=== PATIENT | female | born 1950 | race Two or more races ===

== ENCOUNTER 2021-06-02 10:10 | Outpatient (CLI) | payer MEDICARE ==
[2021-06-02 11:23] LABS: BASOPHILS # (AUTO) 0.1 K/uL (0.0-0.2); BASOPHILS % (AUTO) 0.7 % (0.0-2.0); EOSINOPHILS % (AUTO) 1.7 % (0.0-6.0); HEMATOCRIT 41 % (33-45); HEMOGLOBIN 12.8 g/dL (11.5-14.8); LYMPHOCYTES # (AUTO) 2.3 K/uL (0.8-4.8); LYMPHOCYTES % (AUTO) 23.1 % (20.0-44.0); MEAN CORPUSCULAR HGB CONC 31 g/dl (31.0-36.0); MEAN CORPUSCULAR VOLUME 77 fL (82-100); MONOCYTES # (AUTO) 0.5 K/uL (0.1-1.30); MONOCYTES % (AUTO) 5.3 % (2.0-12.0); NEUTROPHILS # (AUTO) 6.9 K/uL (1.8-8.9); NEUTROPHILS % (AUTO) 69.2 % (43.0-81.0); PLATELET COUNT (AUTO) 325 K/uL (150-450); RED BLOOD CELL COUNT(AUTO) 5.38 MIL/uL (4.0-5.2)
[2021-06-02 11:49] LABS: ALBUMIN 3.7 g/dL (3.4-5.0); BILIRUBIN,DIRECT 0.1 mg/dL (0.0-0.2); BILIRUBIN,TOTAL 0.3 mg/dL (0.2-1.0)
== END 2021-06-02 23:59 | disposition home or self-care (01) ==
LOC: MSC 10:10
PROVIDERS: ATTEND Internal Medicine
DX: E11.9 Type 2 diabetes mellitus without complications (principal); I10 Essential (primary) hypertension; Z86.79 Personal history of other diseases of the circulatory system; E66.8 Other obesity; Z71.3 Dietary counseling and surveillance; F29 Unspecified psychosis not due to a substance or known physiological condition; F32.9 Major depressive disorder, single episode, unspecified; G89.29 Other chronic pain; M24.571 Contracture, right ankle
CPT/HCPCS: 36415; 80061; 80076; 82728; 83036; 83540; 84439; 85025; 86431; G0463

== ENCOUNTER 2021-08-08 10:29 | Outpatient (CLI) | payer MEDICARE | END 2021-08-08 23:59 | disposition home or self-care (01) | LOC: MSC 10:29 | PROVIDERS: ATTEND Internal Medicine | DX: Z51.89 Encounter for other specified aftercare (principal); E11.9 Type 2 diabetes mellitus without complications; Z79.4 Long term (current) use of insulin; Z71.89 Other specified counseling; I10 Essential (primary) hypertension; E66.8 Other obesity; Z71.3 Dietary counseling and surveillance; F29 Unspecified psychosis not due to a substance or known physiological condition; F32.9 Major depressive disorder, single episode, unspecified; M24.571 Contracture, right ankle; G89.29 Other chronic pain; Z79.891 Long term (current) use of opiate analgesic; Z76.0 Encounter for issue of repeat prescription ==

== ENCOUNTER 2021-10-04 10:29 | Outpatient (CLI) | payer MEDICARE | END 2021-10-04 23:59 | disposition home or self-care (01) | LOC: MSC 10:29 | PROVIDERS: ATTEND Internal Medicine | DX: E11.9 Type 2 diabetes mellitus without complications (principal); Z79.4 Long term (current) use of insulin; I10 Essential (primary) hypertension; E66.8 Other obesity; Z71.3 Dietary counseling and surveillance; F32.3 Major depressive disorder, single episode, severe with psychotic features; M24.571 Contracture, right ankle; G89.29 Other chronic pain; Z76.0 Encounter for issue of repeat prescription ==

== ENCOUNTER 2021-11-14 11:35 | Outpatient (CLI) | payer MEDICARE ==
[2021-11-14] MEDS ORDERED: INSU100V7 SQ (12:51)
[2021-11-14] MEDS ORDERED: GABA-532 PO (12:51)
[2021-11-14] MEDS ORDERED: OXYC-133 PO (12:51)
[2021-11-14] MEDS ORDERED: METO25TA3 PO (12:51)
[2021-11-14] MEDS ORDERED: INSU100V3 SQ (12:51)
== END 2021-11-14 23:59 | disposition home or self-care (01) ==
LOC: MSC 11:35
PROVIDERS: ATTEND Internal Medicine
DX: R29.898 Other symptoms and signs involving the musculoskeletal system (principal); R27.8 Other lack of coordination; R53.1 Weakness; E11.9 Type 2 diabetes mellitus without complications; Z79.4 Long term (current) use of insulin; I10 Essential (primary) hypertension; E66.8 Other obesity; F29 Unspecified psychosis not due to a substance or known physiological condition; M24.571 Contracture, right ankle; F32.9 Major depressive disorder, single episode, unspecified; G89.29 Other chronic pain; Z79.891 Long term (current) use of opiate analgesic

== ENCOUNTER 2021-11-14 12:07 | Inpatient (IN) | payer MEDICARE, OTHER ==
[~2021-11-14] VITALS: Ht 167.6 cm; Wt 88.9 kg
--- NOTE | 2021-11-14 12:16 | NUR ---
To ER bed 2, c/o L sided weakness x 2 days, sent by dr maldonado for further eval. Left hand is weaker than right, no other complains, aaox3, breathing even and labored, connected to monitor
--- NOTE | 2021-11-14 12:25 | NUR ---
SALINE LOCK ESTABLISHED, BLOOD DRAWN AND SENT TO LAB
[2021-11-14 12:45] LABS: BASOPHILS # (AUTO) 0.1 K/uL (0.0-0.2); BASOPHILS % (AUTO) 1.1 % (0.0-2.0); EOSINOPHILS % (AUTO) 1.1 % (0.0-6.0); HEMATOCRIT 41 % (33-45); HEMOGLOBIN 13.1 g/dL (11.5-14.8); LYMPHOCYTES # (AUTO) 2.5 K/uL (0.8-4.8); LYMPHOCYTES % (AUTO) 26.3 % (20.0-44.0); MEAN CORPUSCULAR HGB CONC 32 g/dl (31.0-36.0); MEAN CORPUSCULAR VOLUME 77 fL (82-100); MONOCYTES # (AUTO) 0.5 K/uL (0.1-1.30); MONOCYTES % (AUTO) 4.7 % (2.0-12.0); NEUTROPHILS # (AUTO) 6.4 K/uL (1.8-8.9); NEUTROPHILS % (AUTO) 66.8 % (43.0-81.0); PLATELET COUNT (AUTO) 341 K/uL (150-450); RED BLOOD CELL COUNT(AUTO) 5.38 MIL/uL (4.0-5.2); WHITE BLOOD COUNT (AUTO) 9.6 K/uL (4.3-11.0)
[2021-11-14] MEDS ORDERED: GABA-532 PO (12:51)
[2021-11-14] MEDS ORDERED: INSU100V3 SQ (12:51)
[2021-11-14] MEDS ORDERED: INSU100V7 SQ (12:51)
[2021-11-14] MEDS ORDERED: METO25TA3 PO (12:51)
[2021-11-14] MEDS ORDERED: OXYC-133 PO (12:51)
[2021-11-14 13:09] LABS: CALCIUM, SERUM 8.8 mg/dL (8.5-10.1); CARBON DIOXIDE 31 mmol/L (21-32); CHLORIDE 101 mmol/L (98-107); CREATININE 0.8 mg/dL (0.6-1.3); GLUCOSE 227 mg/dL (74-106); POTASSIUM 3.6 mmol/L (3.5-5.1); SODIUM SERUM 136 mmol/L (136-145); UREA NITROGEN, BLOOD 10 mg/dL (7-18)
--- NOTE | 2021-11-14 13:11 | NUR ---
COVID SWAB DONE AND SENT TO LAB
--- NOTE | 2021-11-14 16:17 | NUR ---
SEEN BY NEUROLOGIST AT BEDSIDE
[2021-11-14] MEDS ORDERED: GABAPENTIN 300 MG CAPSULE ONE (16:33)
[2021-11-14] MEDS ORDERED: ENOXAPARIN SODIUM 40 MG/0.4 ML DISP.SYRIN SQ ONE (16:33)
[2021-11-14] MEDS: ENOXAPARIN SODIUM 40 MG/0.4 ML DISP.SYRIN SQ SCH (16:45)
[2021-11-14] MEDS: GABAPENTIN 100 MG CAPSULE PO SCH (16:45)
[2021-11-14] MEDS: BLOOD SUGAR DIAGNOSTIC 1 EACH STRIP IN SCH (17:20)
--- NOTE | 2021-11-14 17:21 | NUR ---
2D ECHO DONE AT BEDSIDE
[2021-11-14] MEDS ORDERED: BLOOD SUGAR DIAGNOSTIC 1 EACH STRIP IN SCH (18:00)
--- NOTE | 2021-11-14 18:04 | NUR ---
REPORT GIVEN TO NURSE RECINOS FOR YMUIKO
--- NOTE | 2021-11-14 18:17 | NUR ---
CALLED DR GUNN AND INFORMED HIM ABOUT BLOOD SUGAR 218mg/dl.
--- NOTE | 2021-11-14 18:30 | NUR ---
TRANSFER PATIENT TO ROOM. ENDORSED PATIENT BS LEVEL TO RN JORJE TO FF UP SLIDING SCALE. PATIENT IS ALERT, ORIENTED X4.
[2021-11-14 18:34] LABS: C-REACTIVE PROTEIN 1.1 mg/dL (0.0-0.9); CHOLESTEROL 326 mg/dL (<200); HDL CHOLESTEROL 45 mg/dL (40-60); LDL 211 mg/dL (0-99); THYROID STIMULATING HORMONE 1.353 uIU/mL (0.358-3.74); TRIGLYCERIDES 374 mg/dL (30-150)
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
[2021-11-14 20:00] VITALS: BP 163/85
--- NOTE | 2021-11-14 20:30 | NUR ---
INFORMATION SERVICES ASSISTANT OPENING NOTES: RECEIVED PATIENT AWAKE IN BED, BED IN LOW POSITION, CALL LIGHTS WITHIN REACH, NO COMPLAIN OF PAIN AND DISCOMFORT AT THIS TIME, PATIENT IS A/O X4 ABLE TO MAKE NEEDS KNOWN, SKIN ASSESSMENT NOT YET DONE REFUSED WILL FOLLOW UP, INVENTORIES DONE AND SIGN PATIENT WITH IV LINE AT RAC#18 SL, ON TELE MONITORING SR-70 NO SYMPTOMS WAS OBSERVED, PATIENT KEPT CLEAN AND DRY ALL NEEDS MET WILL CONTINUE TO MONITOR.
[2021-11-14] MEDS: INSULIN GLARGINE, 100 UNIT/ML CARTRIDGE SQ SCH (23:40)
[2021-11-14] MEDS: SIMVASTATIN 20 MG TABLET PO SCH (23:43)
[2021-11-15] VITALS (7 sets, daily range): BP systolic 133–158; BP diastolic 76–94
[2021-11-15] MEDS: BLOOD SUGAR DIAGNOSTIC 1 EACH STRIP IN SCH ×6 (00:06→21:47)
[2021-11-15] MEDS ORDERED: DEXTROSE 50%-WATER 50 ML DISP.SYRIN IV PRN ×2 (02:00)
[2021-11-15] MEDS ORDERED: INSULIN REGULAR, HUMAN 100 UNIT/ML 3 ML VIAL SQ PRN (02:00)
--- NOTE | 2021-11-15 02:05 | NUR ---
RN NOTES: NO INSULIN GIVEN DUPLICATE ORDER
--- NOTE | 2021-11-15 06:32 | NUR ---
TEXT DR. BENZ FOR MRI APPROVAL.
--- NOTE | 2021-11-15 07:24 | NUR ---
CITY ROUTEMAN CLOSING NOTES: PATIENT WAS AWAKE IN BED, BED IN LOW POSITION, CALL LIGHTS WITHIN REACH, NO COMPLAIN OF PAIN AND DISCOMFORT AT THIS TIME, PATIENT IS A/OX4 ABLE TO EXPRESS NEEDS, ON BED REST, ON TELE MONITOR SR-68, ON ROOM AIR NO SOB WAS OBSERVED, WITH IV LINE AT RAC#18 SL, PATIENT KEPT CLEAN AND DRY ALL NEEDS MET ENDORSE TO INCOMING SHIFT.
[2021-11-15] MEDS ORDERED: BLOOD SUGAR DIAGNOSTIC 1 EACH STRIP IN SCH (07:30)
--- NOTE | 2021-11-15 07:30 | NUR ---
MANAGER GLOBAL COMMUNICATIONS OPENING NOTES PATIENT IS AWAKE IN BED, A/O X4. EQUAL CHEST EXPANSION ON RA WITH NO S/SX OF RESPIRATORY DISTRESS NOTED. NO COMPLAINT OF PAIN VERBALIZED AT THIS TIME. ON TELE MONITOR READING SR-70's AT THIS TIME. R AC#18 INTACT AND PATENT. L FOOT IMMOBILIZER IN PLACE. SAFETY PRECAUTIONS IN PLACE: BED IN LOWEST POSITION, WHEELS LOCKED, CALL LIGHT WITHIN REACH. WILL CONTINUE PLAN OF CARE
[2021-11-15] MEDS: ASPIRIN EC 325 MG TABLET.DR PO SCH (09:29)
[2021-11-15] MEDS: GABAPENTIN 100 MG CAPSULE PO SCH ×3 (09:29→16:41)
[2021-11-15] MEDS: METOPROLOL SUCCINATE 25 MG TAB.SR.24H PO SCH (09:30)
[2021-11-15] MEDS: PANTOPRAZOLE 40 MG TABLET.DR PO SCH (09:30)
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
[2021-11-15] MEDS: INSULIN REGULAR, HUMAN 100 UNIT/ML 3 ML VIAL SQ PRN ×3 (12:26→22:14)
[2021-11-15] MEDS ORDERED: GADOTERATE MEGLUMINE 5 MMOL/10 ML VIAL IV ONE (14:54)
[2021-11-15 15:05] LABS: BASOPHILS # (AUTO) 0.1 K/uL (0.0-0.2); BASOPHILS % (AUTO) 1.3 % (0.0-2.0); EOSINOPHILS % (AUTO) 1.4 % (0.0-6.0); HEMATOCRIT 41 % (33-45); LYMPHOCYTES # (AUTO) 3.1 K/uL (0.8-4.8); LYMPHOCYTES % (AUTO) 32.8 % (20.0-44.0); MEAN CORPUSCULAR HGB CONC 32 g/dl (31.0-36.0); MEAN CORPUSCULAR VOLUME 77 fL (82-100); MONOCYTES # (AUTO) 0.7 K/uL (0.1-1.30); MONOCYTES % (AUTO) 7.1 % (2.0-12.0); NEUTROPHILS # (AUTO) 5.5 K/uL (1.8-8.9); NEUTROPHILS % (AUTO) 57.4 % (43.0-81.0); PLATELET COUNT (AUTO) 291 K/uL (150-450); RED BLOOD CELL COUNT(AUTO) 5.33 MIL/uL (4.0-5.2); WHITE BLOOD COUNT (AUTO) 9.5 K/uL (4.3-11.0)
[2021-11-15 15:27] LABS: CALCIUM, SERUM 8.8 mg/dL (8.5-10.1); CREATININE 0.9 mg/dL (0.6-1.3); POTASSIUM 3.2 mmol/L (3.5-5.1)
[2021-11-15] MEDS: ENOXAPARIN SODIUM 40 MG/0.4 ML DISP.SYRIN SQ SCH (16:42)
--- NOTE | 2021-11-15 18:45 | NUR ---
PHYSIOTHERAPY PRACTICE MANAGER CLOSING NOTES PATIENT IS AWAKE IN BED, A/O X4. NO S/SX OF RESPIRATORY DISTRESS NOTED. NO COMPLAINT OF PAIN VERBALIZED AT THIS TIME. ON TELE MONITOR READING SR-60's AT THIS TIME. R FA#18 INTACT AND PATENT. L FOOT IMMOBILIZER IN PLACE. MRI OF THE HEAD DONE TODAY AND RESULTS ARE IN. ALL ORDERS CARRIED OUT AND NEEDS MET. SAFETY PRECAUTIONS IN PLACE: BED IN LOWEST POSITION, WHEELS LOCKED, CALL LIGHT WITHIN REACH. WILL ENDORSE TO [facility] WORKER NURSE FOR [facility]
--- NOTE | 2021-11-15 19:35 | NUR ---
ROLLER STITCHER NOTES SR-89 ON TELE MONITOR.LAYING COMFORTABLY ON BED,ALERT,ORIENTED X4,BREATHING REGULAR,NOT IN ANY FORM OF DISTRESS,SALINE LOCK RIGHT FOREARM INTACT AND PATENT WHEN FLUSH WITH SALINE.DENIES DISCOMFORTS AT THE MOMENT,CALL LIGHT IN REACH,NEEDS ANTICIPATED.
[2021-11-15] MEDS: SIMVASTATIN 20 MG TABLET PO SCH (21:47)
--- NOTE | 2021-11-15 22:00 | NUR ---
UTILIZATION SUPERVISOR NOTES ACCU-CHECK BLOOD SUGAR CHECK 242,COVERED WITH HUMULIN R 4 UNITS PER SLIDING SCALE,ALONG WITH LANTUS 18 UNITS Q HS.SNACKS PROVIDED AT BEDSIDE.
[2021-11-15] MEDS: INSULIN GLARGINE, 100 UNIT/ML CARTRIDGE SQ SCH (22:12)
[2021-11-16] VITALS: BP 150/78
--- NOTE | 2021-11-16 00:45 | NUR ---
ANTHROPOLOGIST PHYSICAL NOTES NOTED K-LEVEL AROUND 3PM WAS 3.2,IT WASNT REPLACED,HOSPITALIST ERWIN MADE AWARE,WITH NEW ORDER NOTED AND CARRIED OUT.
[2021-11-16] MEDS ORDERED: POTASSIUM CHLORIDE 10 MEQ TABLET.SA PO ONE (01:00)
--- NOTE | 2021-11-16 01:30 | NUR ---
CHEMISTRY INSTRUCTOR NOTES GIVEN POTASSIUM CHLORIDE 30MEQ X 1 DOSE ORDERED.
[2021-11-16 05:00] VITALS: BP 126/75
--- NOTE | 2021-11-16 05:30 | NUR ---
TRIAGE CLINICIAN NOTES ACCU-CHECK BLOOD SUGAR CHECK 247,COVERED WITH HUMULIN R 4 UNITS PER MILD SLIDING SCALE.
[2021-11-16] MEDS: BLOOD SUGAR DIAGNOSTIC 1 EACH STRIP IN SCH ×4 (05:49→22:09)
[2021-11-16] MEDS: INSULIN REGULAR, HUMAN 100 UNIT/ML 3 ML VIAL SQ PRN ×3 (05:50→17:24)
--- NOTE | 2021-11-16 06:40 | NUR ---
PRECISE WINDER NOTES FAIRLY RESTED AT NIGHT,CALM AND COOPERATIVE,SALINE LOCK LEFT FOREARM REMAINS PATENT.IN NO ACUTE DISTRESS,CALL LIGHT IN REACH,NEEDS ATTENDED.
--- NOTE | 2021-11-16 07:40 | NUR ---
ANATOMY AND PHYSIOLOGY INSTRUCTOR OPENING NOTE PATIENT IS ASLEEP, EASY TO AROUSE. A/O X4. NO S/SX OF ACUTE DISTRESS. NO SOB. BREATHING IS EVEN AND UNLABORED ON ROOM AIR, TOLERATING WELL. IV ACCESS RFA#18 PATENT AND INTACT. PT WITH EXTERNAL ENROBING MACHINE OPERATOR WITH READING OF SINUS RHYTHM 80'S. SAFETY MEASURES IN PLACE WITH BED LOCKED AND IN LOW POSITION WITH SIDE RAILS UP X 2. WILL CONTINUE TO MONITOR PATIENT THROUGHOUT SHIFT.
[2021-11-16] MEDS: PANTOPRAZOLE 40 MG TABLET.DR PO SCH (08:11)
[2021-11-16] MEDS: ASPIRIN EC 325 MG TABLET.DR PO SCH (08:32)
[2021-11-16] MEDS: METOPROLOL SUCCINATE 25 MG TAB.SR.24H PO SCH (08:32)
[2021-11-16] MEDS: GABAPENTIN 100 MG CAPSULE PO SCH ×3 (08:32→17:10)
--- NOTE | 2021-11-16 10:45 | NUR ---
RN NOTE PT REPORTED SHE TAKES PERCOCET 10/325MG PRN FOR PAIN. PER DR. VELIA TERESA, OK TO CONTINUE HOME MED PERCOCET 10-325MG. ORDERS READ BACK AND CARRIED OUT.
[2021-11-16] MEDS: oxyCODONE/APAP (5/325 MG) 1 UDTAB TABLET PO PRN ×2 (11:21→17:32)
[2021-11-16] MEDS ORDERED: ATOR40TA PO (11:32)
[2021-11-16] MEDS ORDERED: ASPI-1420 PO (11:32)
[2021-11-16] MEDS: ENOXAPARIN SODIUM 40 MG/0.4 ML DISP.SYRIN SQ SCH (15:45)
--- NOTE | 2021-11-16 18:52 | NUR ---
DATA DEVELOPER CLOSING NOTE PT REMIANS IN BED, AWAKE, A/O X4. NO S/SX OF ACUTE DISTRESS. NO SOB. BREATHING IS EVEN AND UNLABORED ON ROOM AIR, ALL NEEDS MET THROUGHOUT SHIFT. DISCHARGE SUMMARY REVIEWED WITH PATIENT AND SIGNED. PT REFUSED PHOTOS. EXTERNAL MONITOR REMOVED. VITALS STABLE. PT REGULATORY AND COMPLIANCE TECHNICIAN TIME FOR AMBULANCE TO HOME IS 0. ALL BELONGINGS ACCOUNTED FOR AND SIGNED.
--- NOTE | 2021-11-16 19:10 | NUR ---
MS/RN OPENING NOTE RECEIVED PATIENT RESTING IN WHEELCHAIR. ALERT AND ORIENTED X 4. ABLE TO MAKE NEEDS KNOWN. DENIES PAIN AT THIS TIME. CONTINUES ON ROOM AIR WITH NO S/SX OF RESPIRATORY DISTRESS NOTED. IV ACCESS TO RIGHT FOREARM #18G INTACT AND PATENT. PATIENT TO BE DISCHARGED TONIGHT AT 22:30. CALL LIGHT WITHIN REACH. ASPIRATION, FALL AND SAFETY PRECAUTIONS MAINTAINED. WILL CONTINUE TO MONITOR.
[2021-11-16] MEDS ORDERED: SIMVASTATIN 20 MG TABLET PO SCH (22:00)
[2021-11-16] MEDS: INSULIN GLARGINE, 100 UNIT/ML CARTRIDGE SQ SCH (22:22)
[2021-11-16 22:30] VITALS: BP 148/71
--- NOTE | 2021-11-16 22:30 | NUR ---
MS/BUSINESS TEST ANALYST NOTE PATIENT BEING DISCHARGED HOME. PATIENT IS ALERT AND ORIENTED X 4. ABLE TO MAKE NEEDS KNOWN. DENIES PAIN AT THIS TIME. CONTINUES ON ROOM AIR WITH NO S/SX OF RESPIRATORY DISTRESS NOTED. PATIENT IS DISCHARGING VIA WHEELCHAIR AND AMBULANCE SERVICE. IV TO RIGHT FOREARM DISCONTINUED WITH PRESSURE DRESSING APPLIED. MINIMAL DRAINAGE NOTED WITH TIP INTACT. PATIENT TOLERATED WELL. VS TAKEN PRIOR TO DISCHARGE. ID BAND REMOVED. SKIN CHECK PERFORMED WITH NO SKIN ISSUES AT TIME OF DISCHARGE. ALL DISCHARGE PAPERWORK REVIEWED WITH PATIENT. PAPERWORK AND BELONGINGS LIST SIGNED. ALL BELONGINGS ACCOUNTED FOR. PATIENT ASSISTED TO LOBBY VIA WHEELCHAIR AND STAFF MEMBER AT APPROX. 20:30.
[2021-11-17] MEDS ORDERED: ASPIRIN EC 81 MG TABLET.DR PO SCH (09:00)
== END 2021-11-16 22:45 | disposition home health service (06) | DRG 65 ==
LOC: ER 12:11 → TRANSITION 13:25 → TELE 17:40
DX: I63.9 Cerebral infarction, unspecified (principal); I50.32 Chronic diastolic (congestive) heart failure; E11.9 Type 2 diabetes mellitus without complications; I11.0 Hypertensive heart disease with heart failure; I25.10 Atherosclerotic heart disease of native coronary artery without angina pectoris; Z79.4 Long term (current) use of insulin; Z79.899 Other long term (current) drug therapy; Z72.0 Tobacco use; V89.2XXS Person injured in unspecified motor-vehicle accident, traffic, sequela; R53.1 Weakness
CPT/HCPCS: 36415; 70450-TC; 70553-TC; 71045-TC; 80048-TC; 80061-TC; 82962-TC; 83880; 84443-TC; 84484-TC; 85025-TC; 85652-TC; 85730-TC; 86140-TC; 87081-TC; 92526; 92611-TC; 93307-TC; 93880-TC; 97110-TC; 97112-TC; 97530-TC; A9575; G0378; J1650; J1815

== ENCOUNTER 2022-03-15 09:58 | Outpatient (CLI) | payer MEDICARE, OTHER ==
[~2022-03-15 09:58] MED LIST: ASPI-1420 PO; ATOR40TA PO; GABA-532 PO; INSU100V3 SQ; INSU100V7 SQ; METO25TA3 PO; OXYC-133 PO
== END 2022-03-15 23:59 | disposition home or self-care (01) ==
LOC: MSC 09:58
PROVIDERS: ATTEND Internal Medicine
DX: I10 Essential (primary) hypertension (principal); Z79.82 Long term (current) use of aspirin; E11.9 Type 2 diabetes mellitus without complications; Z79.4 Long term (current) use of insulin; E66.9 Obesity, unspecified; F29 Unspecified psychosis not due to a substance or known physiological condition; M24.572 Contracture, left ankle; G89.29 Other chronic pain; F32.9 Major depressive disorder, single episode, unspecified; I69.834 Monoplegia of upper limb following other cerebrovascular disease affecting left non-dominant side; Z79.899 Other long term (current) drug therapy

== ENCOUNTER 2022-04-23 10:53 | Outpatient (CLI) | payer MEDICARE, OTHER ==
[2022-04-23 12:03] LABS: BASOPHILS # (AUTO) 0.1 K/uL (0.0-0.2); BASOPHILS % (AUTO) 0.9 % (0.0-2.0); EOSINOPHILS % (AUTO) 0.9 % (0.0-6.0); HEMATOCRIT 42 % (33-45); HEMOGLOBIN 13.5 g/dL (11.5-14.8); LYMPHOCYTES # (AUTO) 2.7 K/uL (0.8-4.8); MEAN CORPUSCULAR HGB CONC 32 g/dl (31.0-36.0); MEAN CORPUSCULAR VOLUME 79 fL (82-100); MONOCYTES # (AUTO) 0.5 K/uL (0.1-1.30); MONOCYTES % (AUTO) 5.4 % (2.0-12.0); NEUTROPHILS # (AUTO) 6.5 K/uL (1.8-8.9); NEUTROPHILS % (AUTO) 65.8 % (43.0-81.0); PLATELET COUNT (AUTO) 294 K/uL (150-450); RED BLOOD CELL COUNT(AUTO) 5.35 MIL/uL (4.0-5.2); WHITE BLOOD COUNT (AUTO) 9.8 K/uL (4.3-11.0)
[2022-04-23 12:20] LABS: IRON, SERUM 39 ug/dl (50-175); TOTAL IRON BINDING CAPACITY 337 ug/dl (250-450)
[2022-04-23 12:21] LABS: ALANINE AMINOTRANSFERASE 15 U/L (12-78); ALKALINE PHOSPHATASE 127 U/L (46-116); ASPARTATE AMINOTRANSFERASE 6 U/L (15-37); BILIRUBIN,TOTAL 0.4 mg/dL (0.2-1.0); CARBON DIOXIDE 32 mmol/L (21-32); CHLORIDE 99 mmol/L (98-107); CREATININE 0.8 mg/dL (0.6-1.3); GLUCOSE 299 mg/dL (74-106); POTASSIUM 3.7 mmol/L (3.5-5.1); SODIUM SERUM 136 mmol/L (136-145); TOTAL PROTEIN, SERUM 8.3 g/dL (6.4-8.2); UREA NITROGEN, BLOOD 14 mg/dL (7-18)
[2022-04-23 12:32] LABS: CHOLESTEROL 223 mg/dL (<200); FERRITIN 28 ng/mL (8-388); FREE T4 (FREE THYROXINE) 0.99 ng/dL (0.76-1.46); HDL CHOLESTEROL 49 mg/dL (40-60); LDL 130 mg/dL (0-99); TRIGLYCERIDES 214 mg/dL (30-150)
[2022-04-23 12:55] LABS: THYROID STIMULATING HORMONE 3.259 uIU/mL (0.358-3.74)
== END 2022-04-23 23:59 | disposition home or self-care (01) ==
LOC: MSC 10:53
PROVIDERS: ATTEND Internal Medicine
DX: E11.9 Type 2 diabetes mellitus without complications (principal); Z79.4 Long term (current) use of insulin; I10 Essential (primary) hypertension; I69.834 Monoplegia of upper limb following other cerebrovascular disease affecting left non-dominant side; Z79.82 Long term (current) use of aspirin; E78.5 Hyperlipidemia, unspecified; E66.9 Obesity, unspecified; F29 Unspecified psychosis not due to a substance or known physiological condition; F32.9 Major depressive disorder, single episode, unspecified; M24.572 Contracture, left ankle; G89.29 Other chronic pain; Z79.891 Long term (current) use of opiate analgesic; Z79.899 Other long term (current) drug therapy
CPT/HCPCS: 80061; 85025; 83540; 83036; 36415; 84439; 84443; 80053; 82728; G0463

== ENCOUNTER → 2022-06-25 | Outpatient (CLI) | payer MEDICARE, OTHER | END | disposition home or self-care (01) | LOC: MSC 10:36 | PROVIDERS: ATTEND Internal Medicine | DX: E11.9 Type 2 diabetes mellitus without complications (principal); Z79.4 Long term (current) use of insulin; I69.934 Monoplegia of upper limb following unspecified cerebrovascular disease affecting left non-dominant side; I10 Essential (primary) hypertension; Z79.82 Long term (current) use of aspirin; Z79.899 Other long term (current) drug therapy; E78.5 Hyperlipidemia, unspecified; E66.8 Other obesity; F29 Unspecified psychosis not due to a substance or known physiological condition; F32.9 Major depressive disorder, single episode, unspecified; M24.571 Contracture, right ankle; G89.29 Other chronic pain; Z79.891 Long term (current) use of opiate analgesic ==

== ENCOUNTER 2022-09-14 10:00 | Outpatient (CLI) | payer MEDICARE, OTHER | END 2022-09-14 23:59 | disposition home or self-care (01) | LOC: MSC 10:00 | PROVIDERS: ATTEND Internal Medicine | DX: E11.9 Type 2 diabetes mellitus without complications (principal); Z79.4 Long term (current) use of insulin; I69.934 Monoplegia of upper limb following unspecified cerebrovascular disease affecting left non-dominant side; I10 Essential (primary) hypertension; Z79.82 Long term (current) use of aspirin; Z79.899 Other long term (current) drug therapy; E78.5 Hyperlipidemia, unspecified; E66.8 Other obesity; F29 Unspecified psychosis not due to a substance or known physiological condition; F32.9 Major depressive disorder, single episode, unspecified; M24.571 Contracture, right ankle; G89.29 Other chronic pain; Z79.891 Long term (current) use of opiate analgesic ==

== ENCOUNTER 2022-10-12 09:45 | Outpatient (CLI) | payer MEDICARE, OTHER ==
[2022-10-12 10:15] LABS: BASOPHILS % (AUTO) 0.4 % (0.0-2.0); EOSINOPHILS % (AUTO) 1.9 % (0.0-6.0); HEMATOCRIT 43 % (33-45); HEMOGLOBIN 13.5 g/dL (11.5-14.8); LYMPHOCYTES # (AUTO) 2.9 K/uL (0.8-4.8); LYMPHOCYTES % (AUTO) 30.2 % (20.0-44.0); MEAN CORPUSCULAR HGB CONC 31 g/dl (31.0-36.0); MEAN CORPUSCULAR VOLUME 79 fL (82-100); MONOCYTES # (AUTO) 0.7 K/uL (0.1-1.30); MONOCYTES % (AUTO) 7.2 % (2.0-12.0); NEUTROPHILS # (AUTO) 5.8 K/uL (1.8-8.9); NEUTROPHILS % (AUTO) 60.3 % (43.0-81.0); PLATELET COUNT (AUTO) 317 K/uL (150-450); RED BLOOD CELL COUNT(AUTO) 5.45 MIL/uL (4.0-5.2); WHITE BLOOD COUNT (AUTO) 9.6 K/uL (4.3-11.0)
[2022-10-12 10:42] LABS: ALBUMIN 3.5 g/dL (3.4-5.0); BILIRUBIN,TOTAL 0.4 mg/dL (0.2-1.0); CREATININE 0.8 mg/dL (0.6-1.3); POTASSIUM 3.7 mmol/L (3.5-5.1); TOTAL PROTEIN, SERUM 7.7 g/dL (6.4-8.2)
[2022-10-12 10:47] LABS: THYROID STIMULATING HORMONE 2.845 uIU/mL (0.358-3.74)
== END 2022-10-12 23:59 | disposition home or self-care (01) ==
LOC: MSC 09:45
PROVIDERS: ATTEND Internal Medicine
DX: E11.9 Type 2 diabetes mellitus without complications (principal); Z79.4 Long term (current) use of insulin; I10 Essential (primary) hypertension; I69.934 Monoplegia of upper limb following unspecified cerebrovascular disease affecting left non-dominant side; Z79.82 Long term (current) use of aspirin; Z79.899 Other long term (current) drug therapy; E78.5 Hyperlipidemia, unspecified; E66.8 Other obesity; F29 Unspecified psychosis not due to a substance or known physiological condition; F32.9 Major depressive disorder, single episode, unspecified; M24.571 Contracture, right ankle; G89.29 Other chronic pain; Z79.891 Long term (current) use of opiate analgesic
CPT/HCPCS: 80061; 85025; 36415; 84443; 80053; G0463

== ENCOUNTER 2022-12-28 10:14 | Outpatient (CLI) | payer MEDICARE, OTHER | END 2022-12-28 23:59 | disposition home or self-care (01) | LOC: MSC 10:14 | PROVIDERS: ATTEND Internal Medicine | DX: E11.65 Type 2 diabetes mellitus with hyperglycemia (principal); Z79.4 Long term (current) use of insulin; I10 Essential (primary) hypertension; E78.5 Hyperlipidemia, unspecified; E66.9 Obesity, unspecified; F29 Unspecified psychosis not due to a substance or known physiological condition; F32.9 Major depressive disorder, single episode, unspecified; I69.354 Hemiplegia and hemiparesis following cerebral infarction affecting left non-dominant side; M24.571 Contracture, right ankle; G89.29 Other chronic pain; Z79.891 Long term (current) use of opiate analgesic; Z79.899 Other long term (current) drug therapy ==